=== PATIENT | female | born 1960 | race Caucasian/White ===

== ENCOUNTER 2021-02-06 02:13 | Emergency (ER) | payer MEDICAID, OTHER ==
[~2021-02-06] VITALS: Ht 157.5 cm; Wt 65.0 kg
[2021-02-06 02:27] VITALS: BP 173/77
[2021-02-06] MEDS ORDERED: PRED10TA23 PO (03:56)
[2021-02-06] MEDS ORDERED: VALA100031 PO (03:56)
== END 2021-02-06 03:55 | disposition home or self-care (01) ==
LOC: ER 02:15
DX: B02.9 Zoster without complications (principal); M79.631 Pain in right forearm; Z88.8 Allergy status to other drugs, medicaments and biological substances; Z79.2 Long term (current) use of antibiotics; Z79.899 Other long term (current) drug therapy
CPT/HCPCS: 99283